=== PATIENT | female | born 1935 | race Hispanic/Latino ===

== ENCOUNTER 2016-12-16 08:45 | Day surgery (SDC) | payer BC, MEDICARE ==
[2015-12-20 07:56] VITALS: BMI 22.1
[2016-12-16 09:19] VITALS: O2SAT 100
[2016-12-16] MEDS ORDERED: Sodium Chloride 0.9% 1,000 ML IV SCH (09:30)
[2016-12-16] MEDS ORDERED: Propofol 10 mg/ml Inj (20 ML) ONE (09:34)
--- NOTE | 2016-12-16 13:12 | CT ---
PROCEDURE: CT Abdomen and Pelvis without intravenous contrast HISTORY: RULE OUT SIGMOID COLONIC PERFORATION COMPARISON: Abdomen and pelvis CT without contrast 07/06/2015. TECHNIQUE: Helical CT of the abdomen and pelvis was performed without oral or intravenous contrast as per referring physician request . Contrast Dose: None Radiation dose: Total exam DLP = 279.27 mGy-cm. This CT exam was performed using one or more of the following dose reduction techniques: Automated exposure control, adjustment of the mA and/or kV according to patient size, and/or use of iterative reconstruction technique. FINDINGS: LOWER THORAX: Limited linear atelectasis or fibrosis in the interval at the bilateral lung bases. No pleural effusion. Trace pericardial effusion and mild cardiomegaly are identified. LIVER: A punctate hepatic granuloma is again seen near the dome laterally to the right. Liver is otherwise unremarkable in the its enhanced appearance. GALLBLADDER AND BILE DUCTS: Prior cholecystectomy. Biliary tree is poorly evaluated but does not appear grossly dilated in this unenhanced exam. PANCREAS: Unremarkable. No gross lesion or ductal dilatation. SPLEEN: Unremarkable. ADRENALS: Unremarkable. No mass. KIDNEYS AND URETERS: Unremarkable. No hydronephrosis. No solid massStable 4.7 cm cyst seen related to the upper midpole right kidney once again with the left kidney unremarkable. . VASCULATURE: Unremarkable. No aortic aneurysm. BOWEL: No CT evidence to suggest bowel perforation at this time with 2 surgical clips identified at the mid sigmoid colon posteriorly as the site of the clinically presumed perforation post colonoscopy. No pericolic reaction or fluid collection is associated. APPENDIX: Retrocecal, unremarkable. PERITONEUM: Unremarkable. No free fluid. No free air. LYMPH NODES: Unremarkable. No enlarged lymph nodes. BLADDER: Unremarkable. REPRODUCTIVE: Unremarkable. BONES: No acute fracture. OTHER FINDINGS: None. IMPRESSION: 1. No CT evidence to suggest bowel perforation including at the left lower quadrant abdomen. Surgical clips seen at the mid sigmoid colon. No ascites or free air identified. 2. Stable right renal cyst evident. 3. Prior cholecystectomy again evident. Lack of contrast agents limits the sensitivity of this examination. Findings were reviewed and discussed with Dr. Garcia 12/16/2016 12:15 p.m..
[2016-12-16 13:36] VITALS: RESP 16; TEMP 97.9
[2016-12-16 14:24] VITALS: PULSE 64
[2016-12-16 14:25] VITALS: BP 198/93
== END 2016-12-16 14:50 | disposition home or self-care (01) ==
LOC: ENDO 08:45
PROVIDERS: ATTEND Internal Medicine Gastroenterology
DX: Z12.11 Encounter for screening for malignant neoplasm of colon (principal); K51.90 Ulcerative colitis, unspecified, without complications; K57.30 Diverticulosis of large intestine without perforation or abscess without bleeding; K56.699 Other intestinal obstruction unspecified as to partial versus complete obstruction; K64.8 Other hemorrhoids